=== PATIENT | female | born 1945 | race African-American/Black ===

== ENCOUNTER 2018-09-15 14:22 | Emergency (ER) | payer OTHER ==
[~2018-09-15] VITALS: Ht 167.6 cm; Wt 96.6 kg
[2018-09-15] MEDS ORDERED: LIPITOR20 MG (14:31)
[2018-09-15] MEDS ORDERED: VERAPAMIL ER180 MG (14:31)
[2018-09-15] MEDS ORDERED: ULTRAM50 MG PO (17:12)
[2018-09-15] MEDS ORDERED: MEDROLPACK PO (17:12)
[2018-09-15] MEDS ORDERED: NEURONTIN300 MG PO (17:12)
[2018-09-15] MEDS ORDERED: KETO10TA2 PO (17:12)
== END 2018-09-15 17:26 | disposition home or self-care (01) ==
LOC: ER 14:22
DX: M12.862 Other specific arthropathies, not elsewhere classified, left knee (principal)

== ENCOUNTER → 2021-01-13 06:41 | Outpatient (CLI) | payer OTHER ==
[~2021-01-13 06:41] MED LIST: KETO10TA2 PO; LIPITOR20 MG; MEDROLPACK PO; NEURONTIN300 MG PO; ULTRAM50 MG PO; VERAPAMIL ER180 MG
== END | disposition home or self-care (01) ==
LOC: LAB 06:41
PROVIDERS: ATTEND Internal Medicine Hematology & Oncology
DX: D50.8 Other iron deficiency anemias (principal); R79.89 Other specified abnormal findings of blood chemistry; I10 Essential (primary) hypertension; R74.02 Elevation of levels of lactic acid dehydrogenase [LDH]; K76.89 Other specified diseases of liver; D63.8 Anemia in other chronic diseases classified elsewhere; D55.0 Anemia due to glucose-6-phosphate dehydrogenase [G6PD] deficiency; D51.1 Vitamin B12 deficiency anemia due to selective vitamin B12 malabsorption with proteinuria; D51.0 Vitamin B12 deficiency anemia due to intrinsic factor deficiency; E03.8 Other specified hypothyroidism; E06.3 Autoimmune thyroiditis; D68.8 Other specified coagulation defects; D69.1 Qualitative platelet defects; R97.0 Elevated carcinoembryonic antigen [CEA]; R97.8 Other abnormal tumor markers

== ENCOUNTER 2021-03-17 07:54 | Outpatient (CLI) | payer OTHER | END 2021-03-17 08:00 | disposition home or self-care (01) | LOC: SONOGRAMA 07:54 | PROVIDERS: ATTEND Pathology Anatomic Pathology & Clinical Pathology | DX: D34 Benign neoplasm of thyroid gland (principal); E04.8 Other specified nontoxic goiter ==

== ENCOUNTER 2021-05-27 09:01 | Outpatient (CLI) | payer OTHER | END 2021-05-27 09:04 | disposition home or self-care (01) | LOC: LAB 09:01 | PROVIDERS: ATTEND Internal Medicine Hematology & Oncology | DX: D50.8 Other iron deficiency anemias (principal); R79.89 Other specified abnormal findings of blood chemistry; E04.2 Nontoxic multinodular goiter; I10 Essential (primary) hypertension; R74.02 Elevation of levels of lactic acid dehydrogenase [LDH]; K76.89 Other specified diseases of liver; D51.8 Other vitamin B12 deficiency anemias; D51.1 Vitamin B12 deficiency anemia due to selective vitamin B12 malabsorption with proteinuria; D51.0 Vitamin B12 deficiency anemia due to intrinsic factor deficiency; E78.2 Mixed hyperlipidemia ==